=== PATIENT | female | born 1995 | race African-American/Black ===

== ENCOUNTER 2017-05-11 18:26 | Emergency (ER) | payer MEDICAID ==
[~2017-05-11] VITALS: Ht 167.6 cm; Wt 122.5 kg
[2017-05-11 18:35] VITALS: BP 155/73
[2017-05-11 19:02] LABS: Basophils # (auto) 0 uL; Basophils % (auto) 0.3 % (0.0-2.0); CONDITION Y; DEFINITIVE SEE PRINTOUT; Eosinophils # (auto) 0 uL; Eosinophils % (auto) 0.3 % (0.0-7.0); Hematocrit 40.7 % (36.0-46.0); Hemoglobin 13.4 g/dL (12.2-16.2); Lymphocytes # (auto) 0.9 uL; Mean Corpuscular Hemoglobin 26.5 pg (28.0-32.0); Mean Corpuscular Hgb Conc. 33.1 g/dL (32.0-36.0); Mean Corpuscular Volume 80.2 fL (80.0-100.0); Mean Platelet Volume 8.9 fL (7.4-10.4); Monocytes # (auto) 0.4 uL; Monocytes % (auto) 4.1 % (0.0-12.0); Neutrophils # (auto) 8.7 uL; Neutrophils % (auto) 86.3 % (37.0-80.0); Platelet Count (auto) 322 10^3/uL (140-450); Red Cell Distribution Width 14.5 % (11.6-16.0); White Blood Cell 10.1 10^3/uL (4.4-10.8)
[2017-05-11 19:30] LABS: Albumin 3.6 g/dL (3.4-5.0); BUN/Creatinine Ratio 13.8; Bilirubin, Total 0.5 mg/dL (0.2-1.0); Calcium 8.9 mg/dL (8.5-10.1); Potassium 3.6 mmol/L (3.5-5.1); Total Protein 7.2 g/dL (6.4-8.2)
== END 2017-05-11 22:00 | disposition left against medical advice (07) ==
LOC: EDBD 18:26 → ER 18:27
DX: F41.9 Anxiety disorder, unspecified (principal); Z53.21 Procedure and treatment not carried out due to patient leaving prior to being seen by health care provider
CPT/HCPCS: 36415; 80053; 84702; 85025; 93005

== ENCOUNTER 2017-12-12 23:20 | Emergency (ER) | payer MEDICAID ==
[~2017-12-12] VITALS: Ht 165.1 cm; Wt 117.9 kg
[2017-12-12 23:51] VITALS: BP 137/77
[2017-12-13] MEDS ORDERED: TETANUS-DIPTH-ACEL PERTUSSIS 0.5ML SYRG IM ONE (01:00)
[2017-12-13] MEDS ORDERED: HYDROcodone-ACET 10/325MG TAB PO ONE (01:00)
== END 2017-12-13 01:55 | disposition home or self-care (01) ==
LOC: ER 23:25
DX: S61.212A Laceration without foreign body of right middle finger without damage to nail, initial encounter (principal); S61.214A Laceration without foreign body of right ring finger without damage to nail, initial encounter; J45.909 Unspecified asthma, uncomplicated; W26.0XXA Contact with knife, initial encounter; Y93.89 Activity, other specified; Y92.89 Other specified places as the place of occurrence of the external cause; Y99.8 Other external cause status
CPT/HCPCS: 12042; 12044; 73130; 90471; 90715

== ENCOUNTER 2018-02-25 11:16 | Emergency (ER) | payer MEDICAID ==
[~2018-02-25] VITALS: Ht 162.6 cm; Wt 117.9 kg
[2018-02-25 11:21] VITALS: BP 118/86
== END 2018-02-25 12:24 | disposition left against medical advice (07) ==
LOC: ER 11:16
DX: S90.851A Superficial foreign body, right foot, initial encounter (principal); Z53.21 Procedure and treatment not carried out due to patient leaving prior to being seen by health care provider

== ENCOUNTER 2018-12-30 10:20 | Emergency (ER) | payer MEDICAID ==
[~2018-12-30] VITALS: Ht 162.6 cm; Wt 113.4 kg
[2018-12-30 11:16] LABS: Urine Bacteria NONE SEEN /hpf (None Seen); Urine Blood Negative /uL (Negative); Urine Mucus FEW (None Seen); Urine Specific Gravity 1.026 (1.001-1.035); Urine WBC 1 /hpf (0 - 5)
[2018-12-30 11:42] LABS: Eosinophils # (auto) 0 uL; Lymphocytes # (auto) 1.3 uL; Nucleated Red Blood Cells % 0.1 %; Red Cell Distribution Width 14.9 % (11.8-14.3)
[2018-12-30 11:44] LABS: Basophils # (auto) 0.1 uL; Basophils % (auto) 0.7 % (0.0-2.0); Eosinophils % (auto) 0.2 % (0.0-7.0); Hematocrit 38.5 % (36.0-46.0); Hemoglobin 12.7 g/dL (12.2-16.2); Lymphocytes % (auto) 14.8 % (10.0-50.0); Mean Corpuscular Hemoglobin 26.6 pg (28.0-32.0); Mean Corpuscular Hgb Conc. 32.9 g/dL (32.0-36.0); Mean Corpuscular Volume 80.8 fL (80.0-100.0); Monocytes # (auto) 0.6 uL; Monocytes % (auto) 6.4 % (0.0-12.0); Neutrophils # (auto) 6.6 uL; Neutrophils % (auto) 77.9 % (37.0-80.0); Platelet Count (auto) 257 10^3/uL (140-450); Red Blood Cells 4.76 10^6/uL (4.0-5.20); White Blood Cell 8.5 10^3/uL (4.4-10.8)
[2018-12-30 11:49] LABS: Albumin 2.2 g/dL (3.4-5.0); Potassium 3.5 mmol/L (3.5-5.1)
[2018-12-30 11:51] VITALS: BP 97/46
[2018-12-30 11:56] LABS: BUN/Creatinine Ratio 4.4; Bilirubin, Total 0.6 mg/dL (0.2-1.0); Calcium 8.7 mg/dL (8.5-10.1); Total Protein 7.1 g/dL (6.4-8.2)
[2018-12-30] MEDS ORDERED: SODIUM CHLORIDE 0.9% 1,000 ML IV ONE ×2 (12:15→13:30)
[2018-12-30] MEDS ORDERED: PROMETHAZINE HCL 25 MG/ML 1ML IV ONE (12:30)
[2018-12-30 15:15] LABS: BUN/Creatinine Ratio 6.7; Calcium 7.8 mg/dL (8.5-10.1); Potassium 3.3 mmol/L (3.5-5.1)
== END 2018-12-30 15:45 | disposition home or self-care (01) ==
LOC: ER 10:22
DX: O99.611 Diseases of the digestive system complicating pregnancy, first trimester (principal); O99.511 Diseases of the respiratory system complicating pregnancy, first trimester; K52.9 Noninfective gastroenteritis and colitis, unspecified; E86.0 Dehydration; J45.909 Unspecified asthma, uncomplicated; F12.10 Cannabis abuse, uncomplicated; Z3A.01 Less than 8 weeks gestation of pregnancy
CPT/HCPCS: 36415; 76801; 80048; 80053; 81001; 83735; 84484; 84702; 85025; 96361; 96374; 99284; J2550; J7030

== ENCOUNTER 2019-03-16 14:39 | Emergency (ER) | payer MEDICAID, OTHER ==
[~2019-03-16] VITALS: Ht 165.1 cm; Wt 119.7 kg
[2019-03-16 15:58] LABS: Basophils # (auto) 0.1 uL; Eosinophils # (auto) 0.1 uL; Hemoglobin 12.5 g/dL (12.2-16.2); Lymphocytes # (auto) 1.7 uL; Mean Corpuscular Volume 81.5 fL (80.0-100.0); Monocytes # (auto) 0.7 uL
[2019-03-16 16:01] LABS: Basophils % (auto) 0.5 % (0.0-2.0); Eosinophils % (auto) 1.3 % (0.0-7.0); Hematocrit 37.7 % (36.0-46.0); Lymphocytes % (auto) 16.5 % (10.0-50.0); Mean Corpuscular Hemoglobin 27.1 pg (28.0-32.0); Mean Corpuscular Hgb Conc. 33.2 g/dL (32.0-36.0); Monocytes % (auto) 6.7 % (0.0-12.0); Neutrophils # (auto) 7.5 uL; Platelet Count (auto) 214 10^3/uL (140-450); Red Blood Cells 4.62 10^6/uL (4.0-5.20)
[2019-03-16 16:10] LABS: Urine Bacteria NONE SEEN /hpf (None Seen); Urine Blood Negative /uL (Negative); Urine Mucus FEW (None Seen); Urine Specific Gravity 1.014 (1.001-1.035); Urine WBC <1 /hpf (0 - 5)
[2019-03-16 16:45] VITALS: BP 125/80
[2019-03-16] MEDS ORDERED: ACETAMINOPHEN 325 MG TAB PO ONE (16:45)
== END 2019-03-16 16:59 | disposition home or self-care (01) ==
LOC: ER 14:43
DX: O26.892 Other specified pregnancy related conditions, second trimester (principal); R10.30 Lower abdominal pain, unspecified; Z3A.17 17 weeks gestation of pregnancy
CPT/HCPCS: 36415; 76805; 81001; 84702; 85025

== ENCOUNTER 2019-06-28 10:07 | Observation (INO) | payer MEDICAID ==
[2019-06-28] MEDS ORDERED: PREN-153 PO (12:17)
[2019-06-28 13:05] LABS: Basophils # (auto) 0 uL; Basophils % (auto) 0.3 % (0.0-2.0); Eosinophils # (auto) 0.2 uL; Eosinophils % (auto) 2.2 % (0.0-7.0); Hematocrit 36.6 % (36.0-46.0); Hemoglobin 12.1 g/dL (12.2-16.2); Lymphocytes # (auto) 1.4 uL; Lymphocytes % (auto) 12.5 % (10.0-50.0); Mean Corpuscular Hemoglobin 26.9 pg (28.0-32.0); Mean Corpuscular Volume 81.6 fL (80.0-100.0); Monocytes # (auto) 0.6 uL; Monocytes % (auto) 5.3 % (0.0-12.0); Neutrophils # (auto) 8.6 uL; Neutrophils % (auto) 79.7 % (37.0-80.0); Nucleated Red Blood Cells % 0.1 %; Platelet Count (auto) 182 10^3/uL (140-450); Red Blood Cells 4.49 10^6/uL (4.0-5.20); Red Cell Distribution Width 14.5 % (11.8-14.3); White Blood Cell 10.9 10^3/uL (4.4-10.8)
[2019-06-28 13:37] LABS: Alcohol, Urine < 3.0 mg/dL (0-5); Amphetamine Screen, Urine NEGATIVE (NEGATIVE); Barbiturate Scree,Urine NEGATIVE (NEGATIVE); Benzodiazephine Screen, Urine NEGATIVE (NEGATIVE); Cannabinoid Screen, Urine POSITIVE (NEGATIVE); Cocaine Screen, Urine NEGATIVE (NEGATIVE); Opiate Scree,Urine NEGATIVE (NEGATIVE); Phencyclidine Screen, Urine NEGATIVE (NEGATIVE)
== END 2019-06-28 13:15 | disposition home or self-care (01) | DRG 566 ==
LOC: LDRP 10:07
PROVIDERS: ADMIT Specialist; ATTEND Specialist
DX: O26.893 Other specified pregnancy related conditions, third trimester (principal); Z86.69 Personal history of other diseases of the nervous system and sense organs; Z3A.33 33 weeks gestation of pregnancy; Z87.891 Personal history of nicotine dependence; Z91.018 Allergy to other foods; Z91.048 Other nonmedicinal substance allergy status
CPT/HCPCS: 36415; 76818; 80307; 85025; G0378; 59025; 81002

== ENCOUNTER 2019-07-05 09:08 | Observation (INO) | payer MEDICAID ==
[~2019-07-05] VITALS: Ht 30.5 cm; Wt 0.5 kg
[~2019-07-05 09:08] MED LIST: PREN-153 PO
== END 2019-07-05 14:35 | disposition home or self-care (01) | DRG 566 ==
LOC: LDRP 11:03
PROVIDERS: ADMIT Specialist; ATTEND Specialist
DX: O26.893 Other specified pregnancy related conditions, third trimester (principal); F12.90 Cannabis use, unspecified, uncomplicated; O99.323 Drug use complicating pregnancy, third trimester; Z3A.34 34 weeks gestation of pregnancy; Z87.891 Personal history of nicotine dependence
CPT/HCPCS: 76818; G0378; 59025; 81002

== ENCOUNTER 2019-07-10 19:36 | Observation (INO) | payer MEDICAID ==
[2019-07-10 22:32] LABS: Alcohol, Urine < 3.0 mg/dL (0-5); Amphetamine Screen, Urine NEGATIVE (NEGATIVE); Barbiturate Scree,Urine NEGATIVE (NEGATIVE); Benzodiazephine Screen, Urine NEGATIVE (NEGATIVE); Cannabinoid Screen, Urine POSITIVE (NEGATIVE); Cocaine Screen, Urine NEGATIVE (NEGATIVE); Opiate Scree,Urine NEGATIVE (NEGATIVE); Phencyclidine Screen, Urine NEGATIVE (NEGATIVE)
== END 2019-07-10 21:30 | disposition home or self-care (01) | DRG 566 ==
LOC: LDRP 19:36
PROVIDERS: ADMIT Specialist; ATTEND Specialist
DX: O62.9 Abnormality of forces of labor, unspecified (principal); O99.323 Drug use complicating pregnancy, third trimester; F12.90 Cannabis use, unspecified, uncomplicated; Z3A.34 34 weeks gestation of pregnancy; Z87.891 Personal history of nicotine dependence
CPT/HCPCS: 59025; 80307; 81002; G0378

== ENCOUNTER 2019-08-08 04:16 | Observation (INO) | payer MEDICAID | END 2019-08-08 05:35 | disposition home or self-care (01) | DRG 566 | LOC: LDRP 04:16 | PROVIDERS: ADMIT Specialist; ATTEND Specialist | DX: O62.9 Abnormality of forces of labor, unspecified (principal); O99.323 Drug use complicating pregnancy, third trimester; F12.90 Cannabis use, unspecified, uncomplicated; Z87.891 Personal history of nicotine dependence; Z3A.38 38 weeks gestation of pregnancy | CPT/HCPCS: 59025; 81002; G0378 ==

== ENCOUNTER 2019-08-17 16:28 | Inpatient (IN) | payer MEDICAID ==
[~2019-08-17] VITALS: Ht 30.5 cm; Wt 0.5 kg
[2019-08-17] MEDS ORDERED: LACTATED RINGER'S 1,000 ML IV SCH (16:46)
[2019-08-17] MEDS ORDERED: LACT. RINGERS/OXYTOCIN 20UNITS 1,000 ML IV SCH (16:46)
[2019-08-17] MEDS ORDERED: LIDOCAINE 2%HCL (LOCAL ANESTH.) INJ 20ML MDV ID PRN ×2 (17:00→19:00)
[2019-08-17] MEDS ORDERED: DERMOPLAST 60ML BOTTLE TOP PRN (17:00)
[2019-08-17] MEDS ORDERED: PHISODERM TOP SOLN 240ML BTL TOP PRN (17:00)
[2019-08-17] MEDS ORDERED: WITCH HAZEL-GLYCERIN PAD TOP PRN (17:00)
[2019-08-17] MEDS ORDERED: NALBUPHINE HCL 10 MG/1ml INJECTION IV PRN (17:00)
[2019-08-17] MEDS ORDERED: PENICILLIN G POT 5MIL/D5 50ML 50 ML IV ONE (17:30)
[2019-08-17] MEDS ORDERED: PROMETHAZINE HCL 25 MG/ML 1ML IV PRN (17:45)
[2019-08-17 18:00] LABS: Eosinophils # (auto) 0.1 uL; Eosinophils % (auto) 0.6 % (0.0-7.0); Monocytes # (auto) 0.9 uL; White Blood Cell 13.8 10^3/uL (4.4-10.8)
[2019-08-17 18:03] LABS: Basophils # (auto) 0.1 uL; Basophils % (auto) 0.5 % (0.0-2.0); Hematocrit 39.2 % (36.0-46.0); Hemoglobin 12.8 g/dL (12.2-16.2); Lymphocytes # (auto) 1.6 uL; Lymphocytes % (auto) 11.8 % (10.0-50.0); Mean Corpuscular Hemoglobin 26.5 pg (28.0-32.0); Mean Corpuscular Hgb Conc. 32.6 g/dL (32.0-36.0); Mean Corpuscular Volume 81.3 fL (80.0-100.0); Monocytes % (auto) 6.7 % (0.0-12.0); Neutrophils # (auto) 11.1 uL; Neutrophils % (auto) 80.4 % (37.0-80.0); Platelet Count (auto) 189 10^3/uL (140-450); Red Blood Cells 4.83 10^6/uL (4.0-5.20); Red Cell Distribution Width 14.6 % (11.8-14.3)
[2019-08-17 18:18] LABS: Albumin 2.4 g/dL (3.4-5.0); BUN/Creatinine Ratio 16.7; Calcium 8.8 mg/dL (8.5-10.1); Potassium 3.5 mmol/L (3.5-5.1)
[2019-08-17 18:19] LABS: INR < 0.93 (0.9-1.15); Partial Thromboplastin Time 26.6 sec (23.64-32.05)
[2019-08-17 18:26] LABS: Bilirubin, Total 0.3 mg/dL (0.2-1.0); Total Protein 6.4 g/dL (6.4-8.2)
[2019-08-17 18:58] LABS: Urine Bacteria NONE SEEN /hpf (None Seen); Urine Blood Negative /uL (Negative); Urine Specific Gravity 1.014 (1.001-1.035); Urine WBC 4 /hpf (0 - 5)
[2019-08-17 19:00] LABS: Alcohol, Urine < 3.0 mg/dL (0-5); Amphetamine Screen, Urine NEGATIVE (NEGATIVE); Barbiturate Scree,Urine NEGATIVE (NEGATIVE); Benzodiazephine Screen, Urine NEGATIVE (NEGATIVE); Cannabinoid Screen, Urine NEGATIVE (NEGATIVE); Cocaine Screen, Urine NEGATIVE (NEGATIVE); Opiate Scree,Urine NEGATIVE (NEGATIVE); Phencyclidine Screen, Urine NEGATIVE (NEGATIVE)
[2019-08-17] MEDS ORDERED: LACTATED RINGER'S 1,000 ML IV ONE (20:34)
[2019-08-17] MEDS ORDERED: NALOXONE HCL 0.4 MG/ML VIAL IV ONE (20:45)
[2019-08-17] MEDS ORDERED: ePHEDrine SULFATE 50 MG/ML AMP IV ONE (20:45)
[2019-08-17] MEDS ORDERED: fentaNYL W ROPIVACAINE 150 ML EPI SCH (20:45)
[2019-08-17] MEDS ORDERED: METHYLERGONOVINE MALEATE 0.2 MG/ML AMP IM ONE ×2 (21:18→21:30)
[2019-08-17] MEDS ORDERED: OXYTOCIN 10UNIT/ML 1ML VIAL ONE (21:18)
[2019-08-17] MEDS ORDERED: PENICILLIN G POTASSIUM 2,500,000 UNITS in D5W 5% 50 ML IV SCH (21:30)
[2019-08-17] MEDS ORDERED: OXYTOCIN 10UNIT/ML 1ML VIAL IM ONE (21:30)
[2019-08-17 23:00] VITALS: BP 130/76
--- NOTE | 2019-08-17 23:34 | NUR ---
Pt stated she went to the bathroom with her mothers help. Pt stated hat was to the top. Pt educated on calling for nurse for help to the bathroom for safety. Pt agreed to call next time she needs to use the bathroom.
--- NOTE | 2019-08-18 01:01 | NUR ---
Ambulation: Patient OOB with standby assistance by RN. Patient ambulated to bathroom with steady gait. Patient able to void without difficulty. [facility]ic[facility] teaching provided with returned demonstration by patient. Clean gown provided and bed linen changed. Patient ambulated back to bed with steady gait and no distress noted.
[2019-08-18 02:38] VITALS: BP 130/76
[2019-08-18] MEDS ORDERED: IBUPROFEN 600 MG TAB PO PRN (03:00)
--- NOTE | 2019-08-18 06:14 | NUR ---
Report received from Marcus Snyder RN and Poppy Resendiz RN on stable pt. Assumed care. Addendum: 08/18/19 at 0818 by Guillermina Hilario RN Amended: Links added.
[2019-08-18 06:34] VITALS: BP 119/70
[2019-08-18 11:30] VITALS: BP 122/72
[2019-08-18 14:48] VITALS: BP 111/55
--- NOTE | 2019-08-18 18:18 | NUR ---
Report given to Shilpi Guardado RN on stable pt. Relinquished care. Addendum: 08/18/19 at 1830 by Guillermina Hilario RN Amended: Links added.
--- NOTE | 2019-08-18 18:30 | NUR ---
Opening Shift Note Received report from SONG Sarmiento and assumed care of patient, awake and alert. No S/S of distress/SOB or pain. Family at the bedside. Instructed patient to call for assist if needed and patient verbalized understanding. Will continue to monitor.
[2019-08-18 19:00] VITALS: BP 133/84
[2019-08-18 23:00] VITALS: BP 122/66
[2019-08-19 02:55] VITALS: BP 117/72
--- NOTE | 2019-08-19 06:00 | NUR ---
Baby's feeding log not updated by patient. Requested 2x to update but patient not responding. Will give report to incoming RN.
[2019-08-19 06:06] LABS: RPR Non Reactive (Non Reactive)
--- NOTE | 2019-08-19 06:10 | NUR ---
Report received from Shilpi Guardado RN on stable pt. Assumed care. Addendum: 08/19/19 at 0624 by Guillermina Hilario RN Amended: Links added.
[2019-08-19 06:50] VITALS: BP 117/61
[2019-08-19 10:55] VITALS: BP 119/86
--- NOTE | 2019-08-19 10:55 | NUR ---
Discharge: Discharge instructions given as ordered. Pt encouraged to follow up with [employer] TECHNICIAN as instructed. All questions and concerns addressed. Patient verbalized understanding. Medication reconciliation completed and copy given to patient. All required/requested vaccines given and copies of vaccinations given to patient. Patient encouraged to prepare to depart unit.
--- NOTE | 2019-08-19 13:46 | NUR ---
Discharge: Patient taken to vehicle via wheelchair with all personal belongings, accompanied by staff and family member. No distress noted at time of departure, no adverse changes in status since initial assessment.
== END 2019-08-19 14:00 | disposition home or self-care (01) | DRG 560 ==
LOC: LDRP 16:28 → OBSVTOIN 16:28
PROVIDERS: ADMIT Specialist; ATTEND Specialist
PROC: 10E0XZZ Delivery of Products of Conception, External Approach (ICD-10-PCS; principal; 2019-08-17)
PROC: 10907ZC Drainage of Amniotic Fluid, Therapeutic from Products of Conception, Via Natural or Artificial Opening (ICD-10-PCS; 2019-08-17)
DX: O80 Encounter for full-term uncomplicated delivery (principal); Z37.0 Single live birth; Z3A.40 40 weeks gestation of pregnancy
CPT/HCPCS: 36415; 59025; 59409; 80053; 80307; 81001; 81002; 84112; 85025; 85610; 85730; 86592; 86850; 86900; 86901; 96366; 96374; G0378; J2540; J2590; J3010; J7060

== ENCOUNTER 2022-04-06 01:03 | Emergency (ER) | payer MEDICAID ==
[~2022-04-06] VITALS: Ht 162.6 cm; Wt 113.4 kg
[2022-04-06 01:03] VITALS: BP 115/57
[~2022-04-06 01:03] MED LIST changes: -PREN-153 PO; +PREN1TAB71 PO
== END 2022-04-06 02:32 | disposition left against medical advice (07) ==
LOC: ER 01:03
DX: J02.9 Acute pharyngitis, unspecified (principal); Z53.21 Procedure and treatment not carried out due to patient leaving prior to being seen by health care provider